=== PATIENT | male | born 1960 | race African-American/Black ===

== ENCOUNTER 2016-09-05 12:48 | Emergency (ER) | payer MEDICARE, OTHER ==
--- NOTE | 2016-09-05 13:36 | ED Physician Documentation ---
Chest Pain - HISTORIAN Historian: patient - HPI Chief Complaint: Chest Pain Onset: minutes Timing: gone now Last known Well Date: 09/05/16 Last Known Well Time: 10:00 Context: onset during: (during dialysis) Severity: mild Quality: pressure, tightness, stabbing Chest Pain Radiation: shoulders Chest Pain Signs/Symptoms: denies: nausea, vomiting, diaphoresis, dyspnea, tachypnea, tachycardia Worsened By: nothing Relieved By: nothing Further Comments: yes (55 year old male patient brought in via EMS with chest pain. Patient reports 2 episodes of chest pain during dialysis. Patient denies any previous cardiac history.) - ROS CONST: none MS/LYMPH: none GI/: none EYES/ENT: none SKIN/ENDO: none NEURO/PSYCH: none - PAST HX HI risk factors: hypertension, hyperlipidemia, other (anemia (iron def), ESRD, anxiety, avascular necrosis of right shoulder) Neuro deficit: none GI disease: GERD Surgeries/Procedures: other (right BKA, left thigh dialysis fistula, Kidney transplant 2010) Allergies/Adverse Reactions: Allergies Allergy/AdvReac Type Severity Reaction Status Date / Time No Known Drug Allergies Allergy Unknown Verified 09/05/16 13:54 Home Medications: Ambulatory Orders Medication Instructions Recorded Prednisone 5 mg PO DAILY u2 01/22/13 Albuterol Sulfate [Albuterol 8.5 gm IH Q4-6 7 Days 07/15/13 Sulfate Hfa] Docusate Sodium [Colace] 100 mg PO DAILY 09/05/16 Metoprolol Succinate [Toprol XL] 100 mg PO 09/05/16 Polyethylene Glycol 3350 [Miralax] 17 gm PO 1100 09/05/16 Sevelamer Carbonate [Renvela] 800 mg PO 09/05/16 - SOCIAL HX Smoking History: non-smoker, quit greater than 1 year Alcohol Use: none Drug Use: marijuana (occasional ) - FAMILY HX Family HX: denies: none - VITAL SIGNS Vital Signs: Vital Signs Temp Pulse Resp BP Pulse Ox 100/49 01/15/15 01:00 - REVIEWED ASSESSMENTS Nursing Assessment Reviewed: Yes Vitals Reviewed: Yes Progress - Progress Progress: No CP on arrival. Patient denies any history of cardiac disease or atrial flutter. 1430 Reviewed lab and xray results with patient, education on new onset Atrial flutter. Recommended transfer to [facility] for cardiology consult and further management. Patient agrees to transfer. 1445 Call to [facility] - patient accepted by Dr Cool, cardiology . - EKG/XRAY/CT EKG: rhythm (Atrial flutter 2:1, Rate 100) Chest Pain Physical Exam - EXAM General Appearance: no acute distress, alert EENT: eye inspection normal, ENT inspection normal, pharynx normal, no signs of dehydration, DELFINA, no nystagmus, TM's nml Respiratory: no resp. distress, rales (bases, productive cough), other CVS: no murmur, no gallop, no friction rub, pulses full, pulses equal, irregularly irreg. rhythm (Atrial flutter on monitor) Abdomen: soft, no organomegaly, normal bowel sounds, no abdominal bruit, no distension Skin: normal color, warm/dry, NR, INT, DR Extremities: non-tender, normal range of motion, no evidence of injury, no edema , other (left BKA, right shoulder pain - related to humeral head fracture, vericose veins left upper arm) Neuro: oriented X3, CN's nml as tested, motor nml, sensation nml, mood/affect nml Discharge Clincal Impression: New onset atrial flutter, ESRD (end stage renal disease), Dialysis patient, Cough Referrals: Morenita Schwarz MD [Primary Care Provider] - 2 Days Home Medications: Ambulatory Orders Prednisone 5 mg PO DAILY u2 01/22/13 Albuterol Sulfate [Albuterol Sulfate Hfa] 8.5 gm IH Q4-6 7 Days 07/15/13 Docusate Sodium [Colace] 100 mg PO DAILY 09/05/16 Metoprolol Succinate [Toprol XL] 100 mg PO 09/05/16 Polyethylene Glycol 3350 [Miralax] 17 gm PO 1100 09/05/16 Sevelamer Carbonate [Renvela] 800 mg PO 09/05/16 Condition: Good Disposition: 02 XFER [id number] HOSP Decision to Admit: [id number] Decision Time: 14:47
[2016-09-05 13:50] LABS: BASOPHILS % 1.1 (0.0-1.5); EOSINOPHILS % 3.2 % (0.0-6.8); LYMPHOCYTES # 0.5 # k/uL (0.6-4.0); MONOCYTES # 0.4 # k/uL (0.0-0.9); MONOCYTES % 11.1 % (0.0-11.0); NEUTROPHILS # 2.3 # k/uL (1.4-7.7)
--- NOTE | 2016-09-05 15:09 | Diagnostic Imaging Report ---
[facility] [address] [facility] 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 HISTORY: Chest pain and dyspnea. FINDINGS: Examination is mildly limited by patient's large body habitus. The heart is enlarged. There is mild central vascular congestion. Left basilar atelectasis is suggested however evaluation lung bases is limited due to patient's body habitus. There is no large pleural effusion or pneumothorax. IMPRESSION: 1. Cardiomegaly with mild central vascular congestion left basilar atelectasis. Electronically signed on Sep 05, 2016 2:12:54 PM SOLAR ENERGY SYSTEM INSTALLER by: Shivam BURKS
[2016-09-05 16:30] VITALS: BP 112/73
== END 2016-09-05 15:48 | disposition short-term general hospital (02) ==
LOC: ED 12:48
DX: I48.91 Unspecified atrial fibrillation (principal); N18.6 End stage renal disease; Z99.2 Dependence on renal dialysis; R05 Cough
CPT/HCPCS: 36415; 71010; 80053; 82550; 84484; 85025; 85610; 85730; 99284; S1016

== ENCOUNTER 2016-10-04 11:54 | Outpatient (CLI) | payer MEDICARE, OTHER | END 2016-10-04 11:55 | LOC: CARD 11:54 | PROVIDERS: ATTEND Internal Medicine Cardiovascular Disease | DX: I48.92 Unspecified atrial flutter (principal) | CPT/HCPCS: G0463 ==

== ENCOUNTER 2017-08-15 13:14 | Outpatient (CLI) | payer MEDICARE, OTHER ==
[~2017-08-15 13:14] MED LIST: BUPIVACAINE HCL/PF 2.5 MG/ML 10ML VIAL IV ONE; Lidocaine 1% 5ml(IM or SUTURE)(PAIN CLINIC) ONE; TRIAMCINOLONE ACETONID 40MG/ML VIAL ONE
--- NOTE | 2017-08-18 15:11 | HISTORY AND PHYSICAL REPORT ---
REFERRING PHYSICIAN: Dr. Wade REASON FOR REFERRAL: Bilateral shoulder pain. Dear Dr. Wade: HISTORY OF PRESENT ILLNESS: I had the opportunity of seeing Aron Bassett today as an outpatient at [facility]. As you are aware, Mr. Bassett is a very nice 56-year- old white male with a history of end-stage renal disease who has been on chronic dialysis for many years. He presents today for an evaluation of bilateral shoulder pain and weakness. He has complete inability to raise his right arm and has a great deal of limitation in range of motion of the left arm. He tells me that both shoulders hurt and that the right is much weaker than the left. He denies pain radiating to the upper or lower extremities. He denies symptoms of radiculitis or neurogenic claudication. He has had several fistulas in both upper extremities for dialysis and now has a femoral dialysis site. He also has a left-sided AC mass which he is asking my opinion about. He has had a previous left lower extremity amputation. PAST MEDICAL HISTORY: 1. History of vision problems. 2. Heart failure. 3. Chronic kidney failure with dialysis 3 times weekly for the last 10 to 11 years. 4. Hypertension. 5. High cholesterol. 6. GERD. 7. PVD. PAST SURGICAL HISTORY: 1. Left [id number] amputation in 2016. 2. Multiple AV fistula sites, currently in his left upper leg. DAILY MEDICATIONS: 1. Metoprolol 100 mg daily. 2. Amlodipine 5 mg daily. 3. Aspirin 81 mg daily. 4. Atorvastatin 80 mg daily. 5. Tums every 6 hours p.r.n. 6. Pantoprazole 40 mg daily. 7. Prednisone 5 mg daily. 8. MiraLAX daily p.r.n. 9. Gabapentin 100 mg t.i.d. 10. Furosemide 40 mg b.i.d. 11. Percocet 5/325 mg p.r.n. ALLERGIES: He has no known drug allergies. SOCIAL HISTORY: He is a former smoker and quit in 2004. Denies alcohol use. Admittedly uses marijuana recreationally. He is . He has 3 children. He lives at home alone. He completed the 11th grade. 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 He is not currently employed. He is currently disabled due to multiple medical problems. FAMILY HISTORY: Family history includes both mother and father with cancer. Sister with lupus. REVIEW OF SYSTEMS: In the last month or so, he reports a weight gain. Pain is worsened when getting up from a chair, changes in weather, cold, and getting up in the morning. Pain is improved when he lies down. PHYSICAL EXAMINATION: General: This is an obese male who is awake and alert and in no apparent distress. Vital Signs: BP: 118/60, P: 74, R: 20, oxygen saturation is 95% on room air. HEENT: Pupils are equal, round, and reactive to light and accommodation. Extraocular movements intact. No facial droop. Neck: There is full range of motion of the cervical spine. No evidence of adenopathy. Thyroid is nontender, not enlarged. Carotids are without bruits. Chest: Clear to auscultation bilaterally. Normal chest excursion. Heart: Regular rate and rhythm without murmur. Abdomen: Benign. Normoactive bowel sounds. Motor/sensory: Intact in the upper and lower extremities. Moves all extremities freely. Extremities: There is complete immobility to abduct of the right arm at the shoulder. There is 0/5 strength in the right shoulder. There is 4/5 strength in the right hand. There is 5/5 strength in the left arm but limited range of motion in abduction to approximately 90 degrees due to pain and impingement. DIAGNOSTIC STUDIES: On exam of the shoulders under fluoroscopy, there is a notable drop in the head of the humerus at the glenohumeral joint consistent with chronic marked rotator cuff tear. The left shoulder appears normal with the exception of osteoarthritic changes. ASSESSMENT: 1. Right shoulder with complete rotator cuff tear. 2. Left shoulder joint impingement, likely a partial rotator cuff tear. PLAN: Plan today for bilateral palliative shoulder joint injections under fluoroscopic guidance. The AC mass was palpated. 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 cc: Dr. Sheri BURKS
--- NOTE | 2017-08-21 09:51 | SHOULDER JOINT INJECT FLOURO ---
PROCEDURE: Bilateral palliative shoulder joint injections with fluoroscopic guidance. DESCRIPTION OF PROCEDURE: The risks and benefits of the injection were discussed with the patient, including the risks of infection, bleeding, and nerve injury. Furthermore, I discussed the risk of steroid exposure causing hyperglycemia, hypertension, osteoporosis, or increased infectious risks. The patient understood these risks and agreed to proceed. Consent was obtained. The patient was placed in the prone position on the fluoroscopy table. The skin overlying the posterior shoulder was cleaned. An AP fluoroscopic view of the left shoulder joint was obtained. A 23-gauge, 3 [id number] spinal needle was inserted under direct fluoroscopic guidance from a posterior approach until the needle contacted the head of the humerus at the shoulder joint. It was verified that there was no aspiration of fluid or blood. The medication was injected. The stylette was replaced in the needle and the needle was removed from the shoulder joint. The skin was cleaned and a bandage was applied over the injection site. In this same fashion, the contralateral shoulder was then also injected. ASSESSMENT: Degenerative joint disease of the shoulders. PLAN: Bilateral palliative shoulder joint injections with fluoroscopic guidance. FOLLOW UP: Return to clinic if problems develop or worsen. Dr. Wade, thank you for allowing me to take part in the care of this nice gentleman. I appreciate the opportunity to take part in the care of your patients. cc: Dr. Sheri BURKS
== END 2017-08-15 13:16 ==
LOC: OUT 13:14
PROVIDERS: ATTEND Anesthesiology Pain Medicine
DX: M19.011 Primary osteoarthritis, right shoulder (principal); M19.012 Primary osteoarthritis, left shoulder
CPT/HCPCS: J3301; J3490; 20610; 99213; G0463

== ENCOUNTER 2018-05-21 13:48 | Emergency (ER) | payer MEDICARE, OTHER ==
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
[2018-05-21 15:44] VITALS: BP 112/74
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
== END 2018-05-21 15:37 | disposition home or self-care (01) ==
LOC: ED 13:48
DX: M25.562 Pain in left knee (principal)
CPT/HCPCS: 73562; 99282

== ENCOUNTER 2018-06-25 06:25 | Emergency (ER) | payer MEDICARE, OTHER ==
[2018-06-25 07:51] LABS: BASOPHILS % 0.3 (0.0-1.5); EOSINOPHILS % 4.2 % (0.0-6.8); MEAN CORPUSCULAR HEMOGLOBIN 32.2 pg (28.0-34.0); MONOCYTES % 4.9 % (0.0-11.0); NEUTROPHILS # 4.9 # k/uL (1.4-7.7)
[2018-06-25 08:25] LABS: APPEARANCE,URINE TURBID (CLEAR); COLOR,URINE RED (YELLOW); OCCULT BLOOD,URINE 3+ (NEGATIVE)
[2018-06-25 08:26] LABS: PH URINE 8.5 (5.0 - 8.0); UROBILINOGEN URINE 0.2 Eu (0.2-1.0)
--- NOTE | 2018-06-25 09:15 | ED Physician Documentation ---
General Adult - HISTORIAN Historian: patient - HPI Stated Complaint: Hematuria since Monday06/23/18 Chief Complaint: General Adult Further Comments: yes (57 year old male patient presents with complaint of "peeing blood". Patient states) - ROS CONST: recent illness (ESRD - dialysis) EYES/ENT: none CVS/RESP: none GI/: none MS/SKIN/LYMPH: none NEURO/PSYCH: denies: headache, fainting, dizziness - PAST HX Past History: hypertension, other (HLD, PVD, GERD, A Flutter, AV Fistula L left) Surgeries/Procedures: other (L BKA - 2016, ORIF ankle) Allergies/Adverse Reactions: Allergies Allergy/AdvReac Type Severity Reaction Status Date / Time No Known Drug Allergies Allergy Unknown Verified 06/25/18 07:01 Home Medications: Ambulatory Orders Medication Instructions Recorded Albuterol Sulfate [Albuterol 8.5 gm IH Q4-6 7 Days hfa.aer.ad 07/15/13 Sulfate Hfa] Docusate Sodium [Colace] 100 mg PO DAILY 09/05/16 Metoprolol Succinate [Toprol XL] 100 mg PO DAILY 09/05/16 Polyethylene Glycol 3350 [Miralax] 17 gm PO 1100 09/05/16 Sevelamer Carbonate [Renvela] 800 mg PO DAILY 09/05/16 - SOCIAL HX Smoking History: non-smoker Drug Use: marijuana (daily) - FAMILY HX Family History: No - VITAL SIGNS Vital Signs: Vital Signs Temp Pulse Resp BP Pulse Ox 99.1 F 67 20 153/89 98 06/25/18 06:37 06/25/18 06:37 06/25/18 06:37 06/25/18 06:37 06/25/18 06:37 - REVIEWED ASSESSMENTS Nursing Assessment Reviewed: Yes Vitals Reviewed: Yes Progress - Progress Progress: [address] Andino - medicine; recommend consult with nephrology [address] Llanos - recommended CT; non-contrasted. Re-consult medicine if no source for hematuria. 1100 CT results reviewed. No source of bleeding confirmed per CT. Call to [facility] - case discussed with Thu. Will accepted for observation - EKG/XRAY/CT EKG: rhythm (Atrial Fib; rate 61) ED Results Lab/Radiology - Lab Results Lab Results: Lab Results 06/25/18 06/25/1806/25/18 07:40 07:40 07:31 WBC 5.10 K/ul K/ul (4.00-12.00) RBC 3.69 M/ul L M/ul (3.90-5.20) Hgb 11.9 g/dL L g/dL (12.0-18.0) Hct 35.0 % L % (37.0-53.0) MCV 95.0 fl fl (80.0-100.0) MCH 32.2 pg pg (28.0-34.0) MCHC 34.0 g/dL g/dL (30.0-36.0) RDW 14.8 % H % (11.3-14.3) Plt Count 194 K/mm3 K/mm3 (130-400) Neut % (Auto) 76.5 % % (39.0-79.0) Lymph % (Auto) 14.1 % L % (16.0-50.0) Woodruff % (Auto) 4.9 % % (0.0-11.0) Eos % (Auto) 4.2 % % (0.0-6.8) Baso % (Auto) 0.3 (0.0-1.5) Neut # (Auto) 4.9 # k/uL # k/uL (1.4-7.7) Lymph # (Auto) 0.7 # k/uL # k/uL (0.6-4.0) Woodruff # (Auto) 0.3 # k/uL # k/uL (0.0-0.9) Eos # (Auto) 0.2 # k/uL # k/uL (0.0-0.6) Baso # (Auto) 0.0 # k/uL # k/uL (0.0-0.5) PT INR APTT Sodium 136 mmol/L mmol/L (136-145) Potassium 4.8 mmol/L mmol/L (3.5-5.1) Chloride 92 mmol/L L mmol/L (98-107) Carbon Dioxide 30 mmol/L mmol/L (22-30) BUN 29 mg/dL H mg/dL (9-20) Creatinine 8.20 mg/dL H mg/dL (0.66-1.25) Estimated Creat Clear 17 Est GFR ( Amer) 9 L (60 - ) Est GFR (Non-Af Amer) 7 L (60 - ) Glucose 77 mg/dL mg/dL (74-106) Calcium 9.9 mg/dL mg/dL (8.4-10.2) Total Bilirubin 1.0 mg/dL mg/dL (0.2-1.3) AST 31 U/L U/L (15-46) ALT 25 U/L U/L (13-69) Alkaline Phosphatase 157 U/L H U/L (38-126) Total Protein 7.6 g/dL g/dL (6.3-8.2) Albumin 3.6 g/dL g/dL (3.5-5.0) Urine Color Red (YELLOW) Urine Appearance Turbid (CLEAR) Urine pH 8.5 (5.0 - 8.0) Ur Specific [place] 1.020 (1.010-1.030) Urine Protein 3+ mg/dL H mg/dL (NEGATIVE) Urine Ketones Negative mg/dL mg/dL (NEGATIVE) Urine Occult Blood 3+ H (NEGATIVE) Urine Nitrite Negative (NEGATIVE) Urine Bilirubin Negative (NEGATIVE) Urine Urobilinogen 0.2 Eu Eu (0.2-1.0) Ur Leukocyte Esterase Trace H (NEGATIVE) Urine RBC >100 H (0-2 HPF) Urine WBC 5-10 H (0-5 HPF) Urine Glucose Negative mg/dL mg/dL (NEGATIVE) 06/25/18 07:31 WBC RBC Hgb Hct MCV MCH MCHC RDW Plt Count Neut % (Auto) Lymph % (Auto) Woodruff % (Auto) Eos % (Auto) Baso % (Auto) Neut # (Auto) Lymph # (Auto) Woodruff # (Auto) Eos # (Auto) Baso # (Auto) PT 12.0 Seconds H Seconds (9.4-11.6) INR 1.14 (0.9-1.2) APTT 27.6 Seconds Seconds (24.5-32.8) Sodium Potassium Chloride Carbon Dioxide BUN Creatinine Estimated Creat Clear Est GFR ( Amer) Est GFR (Non-Af Amer) Glucose Calcium Total Bilirubin AST ALT Alkaline Phosphatase Total Protein Albumin Urine Color Urine Appearance Urine pH Ur Specific [place] Urine Protein Urine Ketones Urine Occult Blood Urine Nitrite Urine Bilirubin Urine Urobilinogen Ur Leukocyte Esterase Urine RBC Urine WBC Urine Glucose - Radiology Radiology Impressions: CT ABDOMEN AND PELVIS WITHOUT CONTRAST History: Left flank pain and hematuria TECHNIQUE: Helically acquired images were obtained from the hemidiaphragms to the pelvic floor without IV contrast using a stone protocol. FINDINGS: On these images without IV contrast, which limits solid organ evaluation, the pancreas, adrenal glands and the gallbladder are unremarkable. Within the right hepatic lobe, there is a 1 cm rounded lesion with Hounsfield units of 3, consistent with a cyst. There is possibly a rounded hypodensity at the mid spleen. There is additionally a small round subcentimeter hypodensity inferiorly of the spleen. There is possibly a 2nd lesion inferiorly of the spleen as well. The kidneys are diffusely abnormal bilaterally. There are innumerable cysts of both kidneys. Findings are consistent with polycystic kidney disease. Additionally, there are atherosclerotic calcifications of both kidneys. Several of the cysts demonstrate peripheral calcifications. A few small calyceal stones would not be excluded in the midst of the cyst calcifications and arterial calcifications. There is no hydronephrosis. The ureters are not dilated. In addition to the [place] kidneys, there is a transplant at the right lower quadrant. The transplant is mildly atrophic. There is no hydronephrosis of the transplant. No calyceal stones are noted of the transplant and the transplant ureter is free of stones. The appendix is normal. There is a fat containing inguinal hernia. There is additionally a soft tissue component within the hernia sac but no bowel loops extend into the hernia. Please clinically correlate to determine if there is any acute symptomatology associated with the hernia. Small collateral vessels are present along the ventral abdominal wall, more so on the right than on the left. There is heavy aortoiliac atherosclerosis without aneurysm. Heavy atherosclerotic calcifications of all the pelvic vessels are present. Additionally, there are calcifications of the vas deferens. Prostate gland demonstrates internal dystrophic calcifications but is not enlarged. Aside from mild scarring versus atelectasis at the left lung base, the lungs are clear. Advanced degenerative findings are present at L4/5 with vacuum disc phenomenon. The bones generally appear sclerotic consistent with renal osteodystrophy. IMPRESSION: 1 cm hepatic cyst. There are several apparent lesions within the spleen. Ultrasound of the spleen would be recommended for further assessment as these lesions are not adequately assessed on this nonenhanced study. Not mentioned above, there is a small hiatal hernia. Findings consistent with advanced polycystic kidney disease. Several of the cysts demonstrate coarse peripheral calcifications. Heavy renal artery calcifications are present. Heavy aortoiliac atherosclerosis and atherosclerotic findings of all aortic branches. Atherosclerotic findings are present of all pelvic arteries. There is calcification of the vas deferens. The transplant kidney is mildly atrophic but demonstrates no stones. There is an umbilical hernia. The hernia sac measures 4.3 cm and contains fat as well as some soft tissue density component but no bowel loops. Please correlate to determine if there is any symptomatology related to this hernia. Collateral vessels are present within the ventral abdominal wall, more so on the right than left. Decompressed bladder but there are no bladder stones. Findings consistent with renal osteodystrophy. Advanced degenerative disc disease with vacuum disc phenomenon at L4/5. Electronically signed on Jun 25, 2018 10:43:33 AM FOOD PRESERVATION SCIENTIST by: Tran Escudero - Orders Orders: ED Orders Category Date Time Status CBC/PLATELET/DIFF Stat Lab 06/25/18 07:40 Completed CMP Stat Lab 06/25/18 07:31 Completed PT-INR Stat Lab 06/25/18 07:31 Completed PTT Stat Lab 06/25/18 07:31 Completed UA W/MICRO IF INDICATED Stat Lab 06/25/18 07:40 Completed URINE CULTURE Stat Lab 06/25/18 07:40 Received General Adult Physical Exam - PHYSICAL EXAM GENERAL APPEARANCE: mild distress EENT: eye inspection normal, DELFINA RESPIRATORY: no resp distress, chest non-tender, breath sounds normal CVS: heart sounds normal, equal pulses, no murmur, no gallop, PMI nml, no JVD, no friction rub, irregularly irregular rhy ABDOMEN: soft, no organomegaly, normal bowel sounds, no abdominal bruit, no distension SKIN: normal color, warm/dry, NR, INT, PAL, DR EXTREMITIES: non-tender, normal range of motion, no evidence of injury, no edema, other (Left BKA; fistula - L thigh) NEURO: oriented X3, motor nml, sensation nml, mood/affect nml Discharge Clincal Impression: ESRD (end stage renal disease), Atrial fibrillation by electrocardiogram Hematuria Qualifiers: Hematuria type: gross Qualified Code(s): R31.0 - Gross hematuria Referrals: Morenita Schwarz MD [Primary Care Provider] - 2 Days Condition: Stable Disposition: 02 XFER SHT-TRM HOSP Decision to Admit: NO Decision Time: 11:20
[2018-06-25 11:45] VITALS: BP 155/92
--- NOTE | 2018-06-25 11:59 | Diagnostic Imaging Report ---
BENNY PINA (REAL ESTATE MANAGER) - ER [facility] [address] [facility] [place], [place]. [address] Report Submission Date: Jun 25, 2018 10:43:33 AM BUSINESS MANAGEMENT CONSULTANT Patient Study Name: PRECIOUS PEARCE Date: Jun 25, 2018 9:39:12 AM BUSINESS MANAGEMENT CONSULTANT Modality Type: CT\SR Gender: M Description: CT ABD PELVIS W/O CO : 58 Institution: [facility] Physician: BENNY PINA (REECE) - ER CT ABDOMEN AND PELVIS WITHOUT CONTRAST History: Left flank pain and hematuria TECHNIQUE: Helically acquired images were obtained from the hemidiaphragms to the pelvic floor without IV contrast using a stone protocol. FINDINGS: On these images without IV contrast, which limits solid organ evaluation, the pancreas, adrenal glands and the gallbladder are unremarkable. Within the right hepatic lobe, there is a 1 cm rounded lesion with Hounsfield units of 3, consistent with a cyst. There is possibly a rounded hypodensity at the mid spleen. There is additionally a small round subcentimeter hypodensity inferiorly of the spleen. There is possibly a 2nd lesion inferiorly of the spleen as well. The kidneys are diffusely abnormal bilaterally. There are innumerable cysts of both kidneys. Findings are consistent with polycystic kidney disease. Additionally, there are atherosclerotic calcifications of both kidneys. Several of the cysts demonstrate peripheral calcifications. A few small calyceal stones would not be excluded in the midst of the cyst calcifications and arterial calcifications. There is no hydronephrosis. The ureters are not dilated. 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 The transplant is mildly atrophic. There is no hydronephrosis of the transplant. No calyceal stones are noted of the transplant and the transplant ureter is free of stones. The appendix is normal. There is a fat containing inguinal hernia. There is additionally a soft tissue component within the hernia sac but no bowel loops extend into the hernia. Please clinically correlate to determine if there is any acute symptomatology associated with the hernia. Small collateral vessels are present along the ventral abdominal wall, more so on the right than on the left. There is heavy aortoiliac atherosclerosis without aneurysm. Heavy atherosclerotic calcifications of all the pelvic vessels are present. Additionally, there are calcifications of the vas deferens. Prostate gland demonstrates internal dystrophic calcifications but is not enlarged. Aside from mild scarring versus atelectasis at the left lung base, the lungs are clear. Advanced degenerative findings are present at L4/5 with vacuum disc phenomenon. The bones generally appear sclerotic consistent with renal osteodystrophy. IMPRESSION: 1 cm hepatic cyst. There are several apparent lesions within the spleen. Ultrasound of the spleen would be recommended for further assessment as these lesions are not adequately assessed on this nonenhanced study. Not mentioned above, there is a small hiatal hernia. Findings consistent with advanced polycystic kidney disease. Several of the cysts demonstrate coarse peripheral calcifications. Heavy renal artery calcifications are present. Heavy aortoiliac atherosclerosis and atherosclerotic findings of all aortic branches. Atherosclerotic findings are present of all pelvic arteries. There is calcification of the vas deferens. The transplant kidney is mildly atrophic but demonstrates no stones. There is an umbilical hernia. The hernia sac measures 4.3 cm and contains fat as well as some soft tissue density component but no bowel loops. Please correlate to determine if there is any symptomatology related to this hernia. Collateral vessels are present within the ventral abdominal wall, more so on the right than left. Decompressed bladder but there are no bladder stones. Findings consistent with renal osteodystrophy. Advanced degenerative disc disease with vacuum disc phenomenon at L4/5. Electronically signed on Jun 25, 2018 10:43:33 AM BUSINESS MANAGEMENT CONSULTANT by: Tran BURKS
== END 2018-06-25 11:42 | disposition short-term general hospital (02) ==
LOC: ED 06:25
DX: N18.6 End stage renal disease (principal); I48.91 Unspecified atrial fibrillation; R31.0 Gross hematuria; Z99.2 Dependence on renal dialysis; Z94.0 Kidney transplant status
CPT/HCPCS: 36415; 74176; 80053; 81002; 85025; 85610; 85730; 87086; 99285; S1016

== ENCOUNTER 2018-10-08 13:35 | Outpatient (CLI) | payer MEDICARE, OTHER ==
--- NOTE | 2018-10-08 17:29 | Diagnostic Imaging Report ---
MICHELLE FREEMAN [facility] [address] [facility] [address] [address] Report Submission Date: Oct 08, 2018 5:10:45 PM CDT Patient Study Name: PRECIOUS PEARCE Date: Oct 08, 2018 1:50:07 PM CDT Modality Type: DX Gender: M Description: FOOT 3 VIEWS OR MORE : 58 Institution: [facility] Physician: MICHELLE FREEMAN EXAMINATION: FOOT 3 VIEWS OR MORE HISTORY: RIGHT FOOT PAIN (Hx) COMPARISON: None FINDINGS: There is apparent linear lucency through the 1st distal phalanx. No dislocation seen. Calcaneal spurs are noted. There diffuse vascular calcification consistent with atherosclerosis. Ankle hardware is partially imaged. The joint spaces are preserved. IMPRESSION: 1. Apparent linear lucency through the 1st distal phalanx, which could represent an age indeterminate fracture. Correlation with the location of the patient's pain is recommended. 2. Calcaneal spurs. 3. Diffuse atherosclerosis. Electronically signed on Oct 08, 2018 5:10:45 PM CDT by: Chas BURKS
== END 2018-10-08 13:36 ==
LOC: RAD 13:35
PROVIDERS: ATTEND Podiatrist Foot & Ankle Surgery
DX: M77.31 Calcaneal spur, right foot (principal)
CPT/HCPCS: 73630

== ENCOUNTER 2018-10-18 08:13 | Outpatient (CLI) | payer MEDICARE, OTHER ==
--- NOTE | 2018-10-25 08:47 | OP Clinic Progress Note ---
SUBJECTIVE: Aron Bassett is a 58-year-old male who presented to clinic today for follow-up of a right great toe wound. He has a history of a below-knee amputation on the left due to vascular issues as well. The patient had vascular studies performed that were reviewed by myself from the [facility] that demonstrated toe pressures that were at 30 and then 60 and then back to 0 most recently which I believe was either in July of this year or last year. The patient is in need of a vascular workup with a specialist. A vascular referral is in process already. We also discussed x-ray readings with the patient and the patient understands that there is concern for infection due to possible pathological fracture. We also need and MRI to confirm that there is or is not infection in the right great toe distal phalanx that may be associated with this wound and stop it from healing. The patient knows that we will be getting him in for an MRI as well. The patient has no other complaints at this time. He is dealing with a little bit of upper respiratory issues today as well and knows that he needs to see Dr. Schwarz if he starts becoming any more short of breath. The patient does not admit to any fevers, chills, nausea, vomiting, or chest pain. OBJECTIVE: Vitals: Temperature 98.1 degrees Fahrenheit, heart rate 73, respiration rate 20, blood pressure 117/72. O2 saturation is 92% to 94% on room air. Vascular: 1+ DP and PT pulses, right foot. History of below-knee amputation, left lower extremity. Capillary refill time is less than 3 seconds to the toes of the right foot. There is mild edema noted to the right lower extremity. Dermatologic: There is still a right great toe ulcer with yellow slough that is pretty stable and attached to the base of the ulcer on the medial aspect of the distal phalanx. This was debrided today with some bleeding noted. Some of the yellow slough was able to be removed but there is still much more there. The patient has no real erythema, purulence or malodor noted. No obvious probe to bone. No other dark discolorations noted on the right foot. We did not review the distal anterior leg mildly raised dark lesion/discoloration today but we will monitor that on the next visit. Measurement of the wound today was 1.2 cm x 0.7 cm x 0.2 cm deep. This is in comparison to the previous measurement on 10/08/18 measuring 1.4 cm x 0.8 cm x 0.2 cm deep. Musculoskeletal: There is mild to no pain with debridement and with palpation of the right great toe wound. History of left below-knee amputation. No gross abnormalities noted on the right foot. 5/5 muscle strength about the ankle and subtalar joint, right side, per previous exam. Neurologic: Light touch sensation is diminished to the right foot toes. Psychiatric: Mental status is grossly normal. ASSESSMENT AND PLAN: 1. Open wound of toe, subsequent encounter, right hallux. 2. End stage renal failure, on dialysis. PROCEDURE#1: Sharp debridement of a right great toe ulcer over the medial aspect of the distal phalanx was performed with a #15 blade and a pick-up. Some yellow slough was able to be removed but there is still a moderate to severe amount of yellow slough remaining that is fairly stable and attached to the base. Bleeding was controlled with hemostasis but the bleeding was mild. Crosshatching of the base was also performed through the fibrous tissue with a #15 blade which revealed a little bit of bleeding. Medihoney was then applied with a Band-Aid. The patient will continue Medihoney and Band-Aid dressings daily. All other instructions are the same regarding keeping it clean and dry at this time. The patient knows that we are sending him for a vascular workup with Dr. Rubio, who he has seen before for workup to find out if there is anything they can do to improve blood flow or to give recommendations on amputation level if needed. We are also sending the patient for an MRI as I am concerned that there is pathologic fracture of the right great toe associated with this wound and possible osteomyelitis. The patient understands these things. I will look into why the patient never received his Medihoney from [employer]. I will make sure that is sent over as soon as possible so the patient can get started using that daily with a Band-Aid. The patient knows to see Dr. Schwarz if any concerns or with his overall upper respiratory issues and to not hesitate, and she is back in town. The patient is understanding all of this. Return to the clinic in 1 week for follow-up and wound debridement. We will use lidocaine jelly again like we did today. The patient has no further questions at this time. We will follow up with vascular and MRI workups on the next visit. I assume the recent studies from the [facility] are recent enough which was sent over with our referral stuff to Dr. Rubio office so I dont think we need more vascular studies at this time for this referral. KIMMIE
== END 2018-10-18 08:14 ==
LOC: POD 08:13
PROVIDERS: ATTEND Podiatrist Foot & Ankle Surgery
DX: L97.518 Non-pressure chronic ulcer of other part of right foot with other specified severity (principal); N18.6 End stage renal disease; Z89.512 Acquired absence of left leg below knee; Z99.2 Dependence on renal dialysis
CPT/HCPCS: 11042; 97597; A4554

== ENCOUNTER 2018-10-25 08:26 | Outpatient (CLI) | payer MEDICARE, OTHER ==
--- NOTE | 2018-10-28 16:41 | OP Clinic Progress Note ---
SUBJECTIVE: Aron Bassett is a 58-year-old male with a history of a left below- knee amputation and a history of a right great toe ulcer that has been present since sometime near the end of 2018 according to the patient. The patient has had recent blood flow studies performed at the [facility] which were reviewed with him on his last visit demonstrating a decrease in toe pressures to 0 noted pressure on the right great toe. The patient has been set up with a referral for seeing Dr. Rubio, who he has seen before, and that appointment is set for 11/01/18. The patient was given a card with my fax number on it and asked to give it to Dr. Rubio and ask him to send his note from that 11/01/18 visit to our office. The patient states he will do so. The patient does not admit to any fevers, chills, nausea, vomiting, or chest pain. He admits he received the Medihoney finally from [facility] and is using that daily with a Band-Aid. He is also letting the wound be open to air a few hours a day and he was discouraged today from doing that and rather to wash with soap and water, dry it and apply the Medihoney and a Band-Aid daily as opposed to leaving it out to the air. He was discouraged from any baths as well. OBJECTIVE: Vitals: Heart rate 90, respiration rate 20, blood pressure 123/82. O2 saturation is 96% on room air. Temperature 97.2 degrees Fahrenheit. Vascular: 1+ DP and PT pulses, right foot. History of below-knee amputation, left lower extremity. Capillary refill time on the right is less than 3 seconds to the toes, right foot. There is also bleeding with debridement which is fairly moderate. This is encouraging. There is no real edema noted to the right lower extremity today. Dermatologic: The right great toe ulcer still has a little bit of a dry yellow slough that has formed on the wound still. That was not able to be fully removed last week and was not able to be fully removed today. Crosshatching and debridement of the wound revealed some bleeding which was controlled with pressure. The patient does not have any erythema or warmth to the toe, purulence or malodor noted. There is no evidence of infection at this time. There is no dark discoloration noted on the toe at this time. It was not measured today but last time it was measured at 1.2 cm x 0.7 cm x 0.2 cm deep. We will measure it again on the next visit. Musculoskeletal: There is no pain with debridement and palpation of the right great toe wound. History of left below-knee amputation. No other gross abnormalities noted on the right foot. Neurologic: Light touch sensation is diminished to the toes, right foot. He can feel pressure but he is not feeling pain with debridement. Psychiatric: Mental status is grossly normal. ASSESSMENT AND PLAN: 1. Open wound of toe, subsequent encounter, right hallux. 2. End stage renal disease, on dialysis. 3. Peripheral arterial disease. PROCEDURE#1: Debridement of the right great toe ulcer with a sharp #15 blade less than 20 sq. cm. was performed down to and including the subcutaneous tissue. Yellow slough was removed but there was still some dry yellow slough present which I was unable to remove today. Crosshatching of the wound was performed with some bleeding evident. This is encouraging. The patient tolerated the procedure well. Hemostasis was obtained with pressure. Dressings were applied consisting of Medihoney, 4x4 gauze, 2-inch Abimbola and a light 1-inch Coban from the toe onto the distal forefoot. Since the last note was written I have decided to hold off on an MRI and I would like to further work up his blood flow first. The patient is seeing Dr. Rubio on 11/01/18 and I will ask that my note today be sent to Dr. Rubio, the vascular surgeon in [place]. I have left a note asking the outpatient staff to do that once it is signed. We will continue local wound care and will see the patient again on 11/06/18 in a week and a half from now a couple days before I leave town. The patient knows I will be out of town for a week and a half from the through the . I will plan on seeing him on the and then on the following my return in early November. The patient has no further questions or concerns and will call the health clinic next door to set up that appointment for 11/06/18. He will continue local dressing changes as instructed. We will consider an MRI only if we are not getting progress with wound healing if the blood flow is sufficient. He does have a notable history of a possible pathologic fracture in the distal phalanx of the right great toe and due to this I am concerned if this may have some sort of osteomyelitis present as well. Due to the noninfected appearance of the wound we will hold off on MRI until we know the vascular status. Fady MarcPDenaeMDenae (Dictated/Not Signed) Soren JOB#: [id number] Cc: Alfie Rubio M.D. [address] [place] [id number] Sent via [facility]
== END 2018-10-25 08:28 ==
LOC: POD 08:26
PROVIDERS: ATTEND Podiatrist Foot & Ankle Surgery
DX: L97.518 Non-pressure chronic ulcer of other part of right foot with other specified severity (principal); N18.6 End stage renal disease; I73.9 Peripheral vascular disease, unspecified; Z89.512 Acquired absence of left leg below knee
CPT/HCPCS: 11042; 97597; A4554